=== PATIENT | female | born 2000 | race Caucasian/White ===

== ENCOUNTER 2018-06-03 14:55 | Outpatient (REF) | payer BC, SELFPAY ==
[2018-06-05 14:49] LABS: Chlamydia Result Negative; GC Result Negative; Specimen Description URINE
== END 2018-06-03 15:15 ==
LOC: LBN 14:55
PROVIDERS: PCP Pediatrics; Visit Provider Nurse Practitioner Women's Health
DX: Z11.3 Encounter for screening for infections with a predominantly sexual mode of transmission (principal)
CPT/HCPCS: 87491; 87591

== ENCOUNTER 2021-05-21 17:08 | Outpatient (REF) | payer BC, SELFPAY ==
--- NOTE | 2021-05-21 15:00 | PAPFT_PTH ---
PATIENT: Indy Reardon LOC: [facility] U#:[id number] AGE/SX: 20/F ROOM: RE05/21/[address]: Ariela Cm NP : 2000 BED: DIS: 05/21/2021 SPEC #: [id number] RECD: 05/21/21 17:43 STATUS: HEMANTH REQ #: [id number] ALEX: 05/21/21 15:[address]: Toi PERALES,Ariela DEPT: [facility] Cytology RECD BY: Chitra Rosa ENTERED: 05/21/21 17:43 SP TYPE: PAPFT OTHR DR: Jayme Morales MD Tissues: 1 - CX/ENDOCX FOR PAP SMEARS Procedures: PAP THIN PREP/[facility] Screening Comments: [id number]
[2021-07-03 13:09] LABS: Chlamydia Result Negative (Negative); GC Result Negative (Negative)
== END 2021-05-21 17:09 | disposition home or self-care (01) ==
LOC: LBN 17:08
PROVIDERS: PCP Pediatrics; Visit Provider Nurse Practitioner Women's Health
DX: Z12.4 Encounter for screening for malignant neoplasm of cervix (principal)
CPT/HCPCS: 87491; 87591; 88142